=== PATIENT | female | born 1960 | race Caucasian/White ===

== ENCOUNTER 2016-09-29 21:57 | Emergency (ER) | payer BC ==
[~2016-09-29] VITALS: Ht 157.5 cm; Wt 80.2 kg
[2016-09-30] MEDS ORDERED: MOTRIN800 MG PO (00:58)
[2016-09-30] MEDS ORDERED: MEDROL DOSEPAK4 MG PO (00:58)
[2016-09-30 01:22] VITALS: BP 159/91
== END 2016-09-30 01:23 | disposition home or self-care (01) ==
LOC: EME 21:57
PROC: 3E0T3CZ (ICD-10-PCS; principal; 2016-09-30)
DX: M75.41 Impingement syndrome of right shoulder (principal); F17.200 Nicotine dependence, unspecified, uncomplicated
CPT/HCPCS: 99281; 99283